=== PATIENT | male | born 1940 | race Caucasian/White ===

== ENCOUNTER 2020-05-21 10:30 | Day surgery (SDC) | payer MEDICARE, BC ==
[2020-05-15 11:54] LABS: BASOPHILS # (AUTO) 0.1 X10'3 (0-0.2); BASOPHILS % (AUTO) 0.8 % (0-1); EOSINOPHILS # (AUTO) 0.1 X10'3 (0-0.9); EOSINOPHILS % (AUTO) 1.8 % (0-6); LYMPHOCYTES # (AUTO) 1.2 X10'3 (1.1-4.8); MEAN CORPUSCULAR HEMOGLOBIN 30.2 PG (27.0-31.0); MEAN CORPUSCULAR HGB CONC 33.6 g/dL (33.0-36.5); MEAN CORPUSCULAR VOLUME 89.9 FL (78-98); MEAN PLATELET VOLUME 7.6 FL (7.4-10.4); MONOCYTES # (AUTO) 0.5 X10'3 (0-0.9); MONOCYTES % (AUTO) 7.9 % (2-12); NEUTROPHILS # (AUTO) 4.7 X10'3 (1.8-7.7); NEUTROPHILS % (AUTO) 71.5 % (42-75); PRE OP HEMATOCRIT 45.5 % (42.0-52.0); PRE OP HEMOGLOBIN 15.3 g/dL (14.0-17.9); PRE OP PLATELET COUNT 183 X10'3 (140-440); RED BLOOD COUNT 5.06 X10'6 (4.70-6.10); RED CELL DISTRIBUTION WIDTH 13.5 % (11.5-14.5)
[2020-05-15 12:05] LABS: ALBUMIN 3.8 G/DL (3.4-5.0); ALBUMIN/GLOBULIN RATIO 1.3 (1.1-1.5); ALKALINE PHOSPHATASE 75 IU/L (46-116); BLOOD UREA NITROGEN 18 MG/DL (7-18); BUN/CREATININE RATIO 14.8 (5.4-32.0); CALCIUM 9.1 MG/DL (8.5-10.1); CHLORIDE 109 MMOL/L (99-107); CREATININE 1.22 MG/DL (0.60-1.10); PRE OP ALT 25 U/L (30-65); PRE OP ANION GAP 6 (8-16); PRE OP AST 20 U/L (10-37); PRE OP BILIRUB, TOTAL 0.6 MG/DL (0.0-1.0); PRE OP GLUCOSE 105 MG/DL (70-104); PRE OP POTASSIUM 4.1 MMOL/L (3.4-5.1); PRE OP SODIUM 143 MMOL/L (135-145); TOTAL CARBON DIOXIDE 27.6 MMOL/L (24-32); TOTAL PROTEIN 6.8 G/DL (6.4-8.2); eGFR 57 ML/MIN
[~2020-05-21] VITALS: Ht 177.8 cm; Wt 68.7 kg
[2020-05-21] VITALS (10 sets, daily range): BP systolic 118–144; BP diastolic 60–87
[~2020-05-21 10:30] MED LIST: ASPI-1265 PO; CELE-85 PO; OMEP-50 PO; TERA10CA4 PO; TRAZ-251 PO; cefazolin/dext.iso 2gm/50ml 50 ML IV ONE; famotidine 20mg tablet PO ONE; ringers solution, lacted 1,000 ML IV SCH
[2020-05-21] MEDS ORDERED: tamsulosin 0.4mg capsule PO ONE (12:45)
[2020-05-21] MEDS ORDERED: BUPIVAcaine/PF 2.5 mg/ml (0.25%) 30ml vial ONE (12:54)
[2020-05-21] MEDS ORDERED: LIDOcaine 1% 30ml preserv. free vial ONE (12:54)
[2020-05-21] MEDS ORDERED: ondansetron/PF 4mg/2ml inj ONE (13:05)
[2020-05-21] MEDS ORDERED: neostigmine methylsulfate 1 MG/ML 10ml vial ONE (13:05)
[2020-05-21] MEDS ORDERED: sevoflurane 250ml liquid IH ONE (13:05)
[2020-05-21] MEDS ORDERED: fentaNYL/PF 50MCG/1 ML 2ML syringe ONE (13:08)
[2020-05-21] MEDS ORDERED: ringers solution, lacted 1,000 ML IV SCH (14:07)
[2020-05-21] MEDS ORDERED: ondansetron/PF 4mg/2ml inj IV PRN (14:10)
[2020-05-21] MEDS ORDERED: HYDROmorphone inj. 0.5 MG/0.5 ML DISP.SYRIN IV PRN (14:10)
[2020-05-21] MEDS ORDERED: morphine 2 MG/ML inj. syringe IV PRN (14:10)
[2020-05-21] MEDS ORDERED: LIDOcaine 2% (20mg/ml) 5ml vial ONE (14:13)
[2020-05-21] MEDS ORDERED: glycopyrrolate 0.2mg/ml inj ONE (14:13)
[2020-05-21] MEDS ORDERED: propofol inj 20 ML IV ONE (14:13)
[2020-05-21] MEDS ORDERED: ePHEDrine 50MG/ML INJ. ONE (14:13)
[2020-05-21] MEDS ORDERED: dexamethasone sod phosphate 4mg/ml inj. ONE (14:13)
[2020-05-21] MEDS ORDERED: rocuronium 10mg/ml inj IV ONE (14:13)
--- NOTE | 2020-05-21 14:58 | NUR ---
Received from OR via , accompanied by Anesthesiologist DR RICHARDS and report given by Anesthesiolgist. AWAKENS TO VOICE. VITALS STABLE. DRESSINGS DI. SHAYNA PAIN. ABD SOFT.
[2020-05-21] MEDS ORDERED: HYDROcodone/acetaminophen 5mg/325mg tablet PO PRN (15:10)
--- NOTE | 2020-05-21 18:15 | NUR ---
PT WAS UNABLE TO VOID. RECIEVED VERBAL ORDER FROM DR ROLLINS TO PLACE [employer] AND SEND HIM HOME. A NU 16 FR CATH WAS PALCED WITH SOME DIFFICULTY AND ASSISTANCE FROM DR ROLLINS. CLEAR URINE RETURN AND 10CC WAS PALCED IN BALLOON . PT TOLERATED WELL.
[2020-05-21] MEDS ORDERED: LIDOcaine 2% 10ml TOPICAL JELLY (Urojet) MM ONE (18:20)
--- NOTE | 2020-05-21 18:58 | NUR ---
AWAKE AND ORIENTED. VITALS STABLE. DRESSINGS DI. SHAYNA PAIN. HOME WITH HIS DAUGHTER AT THIS TIME.
== END 2020-05-21 18:58 | disposition home or self-care (01) ==
LOC: PAS 10:30
PROVIDERS: ATTEND Surgery
DX: K40.31 Unilateral inguinal hernia, with obstruction, without gangrene, recurrent (principal); K21.9 Gastro-esophageal reflux disease without esophagitis; M19.90 Unspecified osteoarthritis, unspecified site; N40.0 Benign prostatic hyperplasia without lower urinary tract symptoms; Z79.82 Long term (current) use of aspirin; Z79.899 Other long term (current) drug therapy; Z11.59 Encounter for screening for other viral diseases; Z98.890 Other specified postprocedural states; Z80.2 Family history of malignant neoplasm of other respiratory and intrathoracic organs; Z82.61 Family history of arthritis; Z82.49 Family history of ischemic heart disease and other diseases of the circulatory system
CPT/HCPCS: 36415; 49651; 80053; 82948; 85025; 93005; C1781; J1100; J2001; J2405; J2704; J2710; J3010; J3490; U0003; A4215; A4340; A4618; J7120

== ENCOUNTER 2024-07-14 08:48 | Day surgery (SDC) | payer MEDICARE, BC ==
[~2024-07-14] VITALS: Ht 177.8 cm; Wt 68.2 kg
[~2024-07-14 08:48] MED LIST changes: +CELE-127 PO; -CELE-85 PO; -OMEP-50 PO; +OMEP20CA16 PO; +ROSU40TA PO; -cefazolin/dext.iso 2gm/50ml 50 ML IV ONE; -famotidine 20mg tablet PO ONE; -ringers solution, lacted 1,000 ML IV SCH
[2024-07-14 09:11] VITALS: BP 148/91; PULSE 84; RESP 20
[2024-07-14] MEDS ORDERED: fentaNYL/PF 50MCG/1 ML 2ML syringe ONE (10:02)
[2024-07-14] MEDS ORDERED: propofol 10mg/ml 20ml vial IV ONE (10:06)
[2024-07-14] MEDS ORDERED: midazolam 1 mg/ML 2ml injection ONE (10:23)
[2024-07-14 10:27] VITALS: BP 92/62; PULSE 61; RESP 14; O2SAT 99
[2024-07-14 10:37] VITALS: BP 85/58; PULSE 71; RESP 11; O2SAT 96
[2024-07-14 10:40] VITALS: BP 96/58; PULSE 67; RESP 12; O2SAT 93
[2024-07-14 10:47] VITALS: BP 116/74; PULSE 64; RESP 15; O2SAT 93
[2024-07-14 10:57] VITALS: BP 121/71; PULSE 66; RESP 18; O2SAT 94
== END 2024-07-14 11:05 | disposition home or self-care (01) ==
LOC: GI LAB 08:48
PROVIDERS: ATTEND Internal Medicine Gastroenterology
DX: K22.70 Barrett's esophagus without dysplasia (principal); K44.9 Diaphragmatic hernia without obstruction or gangrene; K29.70 Gastritis, unspecified, without bleeding; N18.30 Chronic kidney disease, stage 3 unspecified
CPT/HCPCS: 43239; A4620; J2250; J2704; J3010; J7030; Z7512; 88305